=== PATIENT | male | born 1950 | race Caucasian/White ===

== ENCOUNTER 2016-07-04 15:02 | Emergency (ER) | payer MEDICARE, BC ==
--- NOTE | 2016-07-04 15:12 | ER Document Report ---
ED Medical Screen (RME) - General Stated Complaint: DIFFICULTY BREATHING Notes: Patient states he was in the cafeteria today eating lunch and got choked on a piece of hamburger steak. States difficulty breathing for the last 10-14 days, has had a runny nose. Uses his nebulizer 1 time a day. Patient has a history of emphysema. No fever. Called his manager retirement, and his appointment is supposed to be this . Patient states he would not have come to the emergency room for difficulty breathing if he had not got choked in the cafeteria. I have greeted and performed a rapid initial assessment of this patient. A comprehensive ED assessment and evaluation of the patient, analysis of test results and completion of the medical decision making process will be conducted by additional ED providers. TRAVEL OUTSIDE OF THE [place] IN LAST 30 DAYS: No - Related Data Allergies/Adverse Reactions: No Known Allergies Allergy (Verified 07/04/16 15:16) Past Medical History - Social History Family history: Reviewed & Not Pertinent - Past Medical History Cardiac Medical History: Reports: Hx Coronary Artery Disease, Hx Heart Attack - x 3, Hx Hypercholesterolemia, Hx Hypertension Denies: Hx Atrial Fibrillation, Hx Congestive Heart Failure, Hx Peripheral Vascular Disease, Hx Pulmonary Embolism, Hx Heart Murmur Pulmonary Medical History: Reports: Hx Bronchitis, Hx COPD, Hx Pneumonia Denies: Hx Asthma, Hx Respiratory Failure, Hx Sleep Apnea, Hx Tuberculosis Neurological Medical History: Denies: Hx Cerebrovascular Accident, Hx Seizures Endocrine Medical History: Denies: Hx Graves' Disease, Hx Hyperthyroidism, Hx Hypothyroidism Renal/ Medical History: Reports: Hx Benign Prostatic Hyperplasia, Hx Kidney Stones. Denies: Hx End Stage Renal Disease, Hx Peritoneal Dialysis Malignancy Medical History: Denies Hx Lung Cancer GI Medical History: Reports: Hx Gastroesophageal Reflux Disease. Denies: Hx Crohn's Disease, Hx Hiatal Hernia, Hx Irritable Bowel, Hx Liver Failure, Hx Ulcer Musculoskeltal Medical History: Reports Hx Arthritis, Denies Hx Fibromyalgia, Denies Hx Muscular Dystrophy Psychiatric Medical History: Denies: Hx Bipolar Disorder, Hx Dementia, Hx Depression, Hx Post Traumatic Stress Disorder, Hx Schizophrenia Traumatic Medical History: Reports: Hx Fractures Past Surgical History: Reports: Hx Cardiac Surgery - cardiac stents x 3, defib, Hx Cholecystectomy, Hx Internal Defibrillator. Denies: Hx Colostomy, Hx Pacemaker - Immunizations Hx Diphtheria, Pertussis, Tetanus Vaccination: Yes - or 09 Physical Exam - Vital signs Vitals: Temp Pulse Resp BP Pulse Ox 98.0 F 86 18 130/71 H 94 07/04/16 15:06 07/04/16 15:06 07/04/16 15:06 07/04/16 15:06 07/04/16 15:06 - Respiratory Respiratory status: Labored Breath sounds: Decreased air movement, Wheezing Course - Vital Signs Vital signs: Temp Pulse Resp BP Pulse Ox 98.0 F 86 18 130/71 H 94 07/04/16 15:06 07/04/16 15:06 07/04/16 15:06 07/04/16 15:06 07/04/16 15:06
[2016-07-04] MEDS ORDERED: ALBUTEROL SULFATE 0.083% NEB 2.5 MG/3 ML AMPUL NEB ONE (15:16)
[2016-07-04 18:46] VITALS: BP 115/80
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
== END 2016-07-04 19:11 | disposition home or self-care (01) ==
LOC: ER 15:02
DX: T17.990A Other foreign object in respiratory tract, part unspecified in causing asphyxiation, initial encounter (principal); R06.02 Shortness of breath; R07.9 Chest pain, unspecified; Z87.891 Personal history of nicotine dependence; X58.XXXA Exposure to other specified factors, initial encounter
CPT/HCPCS: 94640; 99284; 71020; A9270

== ENCOUNTER → 2016-07-24 | Outpatient (CLI) | payer MEDICARE, BC | LOC: RAD 13:50 | PROVIDERS: ATTEND Internal Medicine Critical Care Medicine | DX: J45.40 Moderate persistent asthma, uncomplicated (principal); J44.9 Chronic obstructive pulmonary disease, unspecified; R05 Cough; R06.00 Dyspnea, unspecified; R53.82 Chronic fatigue, unspecified; G47.33 Obstructive sleep apnea (adult) (pediatric); G47.10 Hypersomnia, unspecified; Z87.898 Personal history of other specified conditions | CPT/HCPCS: 71250 ==

== ENCOUNTER → 2016-10-05 | Outpatient (CLI) | payer MEDICARE, BC ==
--- NOTE | 2016-10-05 10:06 | ST Modified Barium Swallow ---
Recommendation - Recommendations Recommendations: 1) DIET: Recommend regular and thin diet; no seeds, nuts, foods with skins, or crumbly textures. 2) STRATEGIES: alternate solids and liquids to aid in clearing residuals of solids at the level of the valleculae. Chin tuck with thin liquids also observed to aid in clearing residuals. Aspiration precautions due to residuals above the airway. 3) ST in agreement with outpatient speech therapy consultation. Pt reports evaluation to be completed this date. SUMMARY: Pt presents with a mild oropharyngeal dysphagia characterized by reduced base of tongue, mildly reduced laryngeal elevation and hyolaryngeal excursion resulting in mild-moderate residuals of solids at the level of the valleculae. Pt reported globus sensation during study, corresponding with radiographic findings. Alternating solids and liquids observed to clear residuals. Medical Diagnoses - Medical Diagnoses Medical Diagnosis Description & ICD-10 Code(s): r13.10, dysphagia and choking Other Medical Diagnoses/Co-Morbidities: pt reports COPD, asbestos exposure. - ICD-10 Tx Diagnosis Coding (1) Dysphagia, oropharyngeal phase ICD-10 Code(s): R13.12 - DYSPHAGIA, OROPHARYNGEAL PHASE ST Modified Barium Swallow - General Date: 10/05/16 Referring Physician: Dr Plummer Risks/Precautions: None Date of Onset: 10/06/11 Reason for Referral: dysphagia and choking - History History obtained from: Patient -: Medical - Pt reports onset of symptoms approximately 3-5 years ago, states has become worse. Pt reports incident in cafeteria where he "choked on a piece of hamburger" pt states was given the Heimlich maneuver for several minutes before the piece was dislodged. Pt reports was admitted to ER. Pt reports globus sensation over past 6-9 months with occasional coughing and choking. Pt reports no longer eating pistachios due to "choking on them". Pt reports possible history of PNA however pt states unsure of most recent. Pt states always "gets sick" in winter months until spring. Pt also reports chronic bronchitis and COPD, pt states uses CPAP at night. PMHx: pt reports COPD, asbestos exposure. Medications: pt reports: plavix, "garlic thing", 2 aspirins, finasteride, combivent, symbicort, intresto, simvastatin, metoprolol, afluria, clopidogreel, doxazosinmesylate, klor-con, ceterizine, montelukast. Allergies: none reported - Functional Status Prior Functional Status: INDEPENDENT: feeding Current Functional Limitations: feeding - Subjective Patient/caregiver goal(s): safe swallow, r/o aspiration Cognitive-Linguistic Function: WNL Speech Intelligibility: WNL Current Nutritional Means: PO Current PO diet: Regular Current symptoms: Coughing, c/o Globus sensation Pain: 2/5 - headache - Objective Assessment: Upright, Left Lateral - Food Trials Used Food trials used: Thin liquids, Pureed, Regular The patient: Was Able to Self Feed, via cup, via spoon, via straw - Oral-Motor Skills Dentition: Dentures-Upper, Dentures-Lower Velo-pharyngeal function: Unremarkable Laryngeal Function: Volitional Cough, Volitional Swallow - Assessment Oral prep: Normal Labial closure: Adequate Leakage: None Mastication: Adequate Lingual Movement: Normal Oral stage: Normal for this Procedure - Pharyngeal Stage Initiation of Pharyngeal Stage Reflex: Normal Decreased laryngeal elevation: Yes - mild Reduced Velopharyngeal Closure: no Reduced pressure generation: No reduced tongue-based retraction: Yes - mild Pre-swallow pooling in valleculae: None Pre-Swallow pooling in pyriforms: None Reduced Thyro-Hyoid approximation: Yes - mild Reduced epiglottic excursion: No Reduced pharyngeal peristalsis/contraction: No Multiple Swallows with: Cleared w/ Liquid Assist Post-swallow residulas vallecular: Moderate - mild-moderate on puree and regular Post-Swallow residuals in pyriforms: None Post-Swallow Residuals: tongue-base - Fall Risk Assessment Medications/Conditions that increase fall risks include: Antidepressants, sedatives, anti-arrhythmic, diuretic, benzodiazipenes, neuroleptics. BP regulation problems, cardiac problems, balance or gait deficits, neurological problems. Is patient considered at risk for falls: no Fall Risk Actions Taken: No action needed - Behavioral Observations During evaluation process patient: was pleasant, was cooperative, able to answer questions, provided medical history - Treatment / Educational Needs: Treatment/Education Needs: Treatment consisted of patient education on the role of the Speech Pathologist. Patient's plan of care and golas were communicated as well as scheduling and attendance policies. Recommendations for initial home program were shared. Patient demonstrated understanding and verbalized agreement. Initial home program recommendations: Pt provided with verbal and written education on dysphagia, reflux precautions, aspiration PNA, and recommendations from MBSS. - Impression/Summary Laryngeal Penetration: No Tracheal Aspiration: no Effective compensatory strategies: chin tuck - to aid in clearing residuals in valleculae Patient presents with: Oral-Pharyngeal dysph. Risk of Aspiration: Moderate - mild-moderate - Recommendations NPO: no Solid diet recommendations: Regular Liquid Diet Modification: Thin Strict aspiration precautions: Yes Pt/Family education and followup with MD: Yes Dysphagia therapy with BUSINESS DEVELOPMENT CONSULTANT: yes, dysphagia therapy Recommended techniques: Fully Upright During Meal, Small Bites and Sips, Alternate Bites/Sips Supervision: Independent Information, Precautions and Recommendations: Patient (Written), Patient (Verbal ) - Time Total Time: 25 - Plan of Care Strategies to optimize patient understanding include:: ongoing assessment of educational needs, implementation of educational strategies, and re-education. - - -: Thank you for the opportunity to work with this patient and his/her family. Should you have any questions about this patient's plan or progress, I can be reached at [phone]. Charge G Code? - - -: Yes ST F.L. Impairment Category - Rationale Based On Rationale Based On: Clin Find., Obj Measures - Swallowing Current G8996: CJ 20-39% Impaired Goal G8997: CJ 20-39% Impaired Discharge G8998: CJ 20-39% Impaired
--- NOTE | 2016-10-05 16:55 | RADIOLOGY REPORT (SQ) ---
EXAM DESCRIPTION: ITALOIE SWALLOW COMPLETED DATE/TIME: 10/05/2016 8:53 am REASON FOR STUDY: DYSPHAGIA AND CHOKING R13.10 DYSPHAGIA, UNSPECIFIED COMPARISON: None. TECHNIQUE: Videofluoroscopic swallowing examination was performed in conjunction with speech patholo gy. Videofluoroscopic imaging was obtained and reviewed and these are the findings: RADIATION DOSE: 1 minute, 30 seconds of fluoroscopy was used 1 images saved to PACS. LIMITATIONS: None FINDINGS: The patient was brought into the fluoro room and placed upright on a modified barium swall ow chair. The patient was then given multiple consistencies mixed with barium to swallow under live fluoroscopic video guidance. According to the Speech Pathologist there was no penetration or aspirat ion. Post swallow residual contrast seen within the piriform sinuses. IMPRESSION: NO EVIDENCE OF PENETRATION OR ASPIRATION.PLEASE SEE SPEECH PATHOLOGIST REPORT FOR OTHER FINDINGS AND RECOMMENDATIONS. COMMENT: Quality ID [id number]: Final reports for procedures using fluoroscopy that document radiation exp osure indices, or exposure time and number of fluorographic images (if radiation exposure indices are not available) TECHNICAL DOCUMENTATION: JOB ID: [id number] [employer]- All Rights Reserved
== END ==
LOC: RAD 08:06
PROVIDERS: ATTEND Family Medicine
DX: R13.10 Dysphagia, unspecified (principal)
CPT/HCPCS: 74230; 92611; G8996; G8997; G8998

== ENCOUNTER → 2016-10-06 | Outpatient (CLI) | payer MEDICARE, BC ==
[2016-10-06 12:19] LABS: ANION GAP 12 (5-19); BLOOD UREA NITROGEN 16 mg/dL (7-20); CALCIUM 9.1 mg/dL (8.4-10.2); CARBON DIOXIDE 23 mmol/L (22-30); CHLORIDE 106 mmol/L (98-107); CREATININE RESULT 0.95 mg/dL (0.52-1.25); GLUCOSE 154 mg/dL (75-110); POTASSIUM 4.5 mmol/L (3.6-5.0); SODIUM 140.9 mmol/L (137-145)
== END ==
LOC: OD 10:50
PROVIDERS: ATTEND Internal Medicine
DX: I25.10 Atherosclerotic heart disease of native coronary artery without angina pectoris (principal)
CPT/HCPCS: 36415; 80048

== ENCOUNTER → 2016-10-30 | Outpatient (CLI) | payer MEDICARE, BC | LOC: OD 12:31 | PROVIDERS: ATTEND Family Medicine | DX: Z11.3 Encounter for screening for infections with a predominantly sexual mode of transmission (principal) | CPT/HCPCS: 36415 ==

== ENCOUNTER → 2016-12-11 | Outpatient (CLI) | payer MEDICARE, BC ==
--- NOTE | 2016-12-12 10:41 | ST Modified Barium Swallow ---
Recommendation - Recommendations Recommendations: Recommend continuing current diet: regular foods and thin liquids, with previously discussed strategies including chin tuck, alternating bites and sips, and reduced rate of consumption. Medical Diagnoses - Medical Diagnoses Medical Diagnosis Description & ICD-10 Code(s): r13.10, dysphagia and choking Other Medical Diagnoses/Co-Morbidities: pt reports COPD, asbestos exposure. ST Modified Barium Swallow - General Date: 12/11/16 Referring Physician: Dr Plummer Risks/Precautions: None, Aspiration Reason for Referral: follow up to previous modified after course of treatment - History History obtained from: Patient -: Medical - History from initial MBSS on 10/05/16: Pt reports onset of symptoms approximately 3-5 years ago, states has become worse. Pt reports incident in cafeteria where he "choked on a piece of hamburger" pt states was given the Heimlich maneuver for several minutes before the piece was dislodged. Pt reports was admitted to ER. Pt reports globus sensation over past 6-9 months with occasional coughing and choking. Pt reports no longer eating pistachios due to "choking on them". Pt reports possible history of PNA however pt states unsure of most recent. Pt states always "gets sick" in winter months until spring. Pt also reports chronic bronchitis and COPD, pt states uses CPAP at night. PMHx: pt reports COPD, asbestos exposure. Updated information: patient has received speech therapy to address dysphagia since his previous MBSS. He is now independent with his exercises and strategies. Continues to report occasionally coughing and globus sensation at times. Medications: pt reports: plavix, "garlic thing", 2 aspirins, finasteride, combivent, symbicort, intresto, simvastatin, metoprolol, afluria, clopidogreel, doxazosinmesylate, klor-con, ceterizine, montelukast. Allergies: none reported - Functional Status Prior Functional Status: INDEPENDENT: feeding - Independent - Subjective Patient/caregiver goal(s): better swallow Cognitive-Linguistic Function: WNL Speech Intelligibility: WNL Current Nutritional Means: PO Current PO diet: Regular - avoiding foods such as nuts, seeds, anything with a husk Current symptoms: c/o Globus sensation Pain: 2/5 - lower back pain reported - Objective Assessment: Upright, Left Lateral - Food Trials Used Food trials used: Thin liquids, Pureed, Regular The patient: Was Able to Self Feed - Oral-Motor Skills Dentition: Dentures-Upper, Dentures-Lower Laryngeal Function: Volitional Cough, Throat Clear, Volitional Swallow, clear voicing - Assessment Oral prep: Normal Labial closure: Adequate Mastication: Adequate Lingual Movement: Normal Oral stage: Normal for this Procedure - Pharyngeal Stage Initiation of Pharyngeal Stage Reflex: Normal Decreased laryngeal elevation: No - mild Reduced Velopharyngeal Closure: no Reduced pressure generation: No reduced tongue-based retraction: No Pre-swallow pooling in valleculae: None Pre-Swallow pooling in pyriforms: None Reduced Thyro-Hyoid approximation: Yes - mild Reduced epiglottic excursion: No Reduced pharyngeal peristalsis/contraction: No Multiple Swallows with: Cleared w/ Liquid Assist Post-swallow residulas vallecular: Mild - on puree texture Post-Swallow residuals in pyriforms: None - Fall Risk Assessment Medications/Conditions that increase fall risks include: Antidepressants, sedatives, anti-arrhythmic, diuretic, benzodiazipenes, neuroleptics. BP regulation problems, cardiac problems, balance or gait deficits, neurological problems. Is patient considered at risk for falls: no Fall Risk Actions Taken: No action needed - Behavioral Observations During evaluation process patient: was pleasant, was cooperative, able to answer questions Mental Status: Alert & Oriented X3 - Treatment / Educational Needs: Treatment/Education Needs: Treatment consisted of patient education on the role of the Speech Pathologist. Patient's plan of care and golas were communicated as well as scheduling and attendance policies. Recommendations for initial home program were shared. Patient demonstrated understanding and verbalized agreement. - Impression/Summary Laryngeal Penetration: Yes - Penetration noted on thin liquid and puree trials. Material was seen to enter on the underside of the epiglottis at initiation of inversion, but was expelled when swallow completed., Flash Consistency: Thin, Pudding Tracheal Aspiration: no Effective compensatory strategies: chin tuck Patient presents with: Pharyngeal stage dysph., Mild-Moderate Risk of Aspiration: Mild Risk of nutritional compromise: WNL Evaluation and Findings: Patient presented with mildly improved swallow function since previous MBSS. However, mild pharyngeal phase dysphagia still present. Good tongue base retraction noted, good timing of swallow reflex. Flash penetration noted on thin liquid trials and pudding trials, no aspiration present. Mild to moderate residue present in valleculae post swallow on puree trial, cleared easily with liquid wash. Patient still being seen in outpatient treatment setting, will continue to address swallowing deficits. - Recommendations Solid diet recommendations: Regular Liquid Diet Modification: Thin Dysphagia therapy with TRAINING DEVELOPMENT MANAGER: yes - Patient currently receiving outpatient treatment for dysphagia. Recommended techniques: Fully Upright During Meal, Small Bites and Sips, Alternate Bites/Sips, Chin Tuck to Swallow Supervision: Independent Information, Precautions and Recommendations: Patient (Verbal) - Time Total Time: 25 - Plan of Care Summary: Continue with established POC in outpatient setting. Patient to follow-up with referring physician: Yes Strategies to optimize patient understanding include:: ongoing assessment of educational needs, implementation of educational strategies, and re-education. - - -: Thank you for the opportunity to work with this patient and his/her family. Should you have any questions about this patient's plan or progress, I can be reached at [phone]. Charge G Code? - - -: No ST F.L. Impairment Category - Swallowing Current G8996: CJ 20-39% Impaired Goal G8997: CJ 20-39% Impaired Discharge G8998: CJ 20-39% Impaired
== END ==
LOC: RAD 10:05
PROVIDERS: ATTEND Family Medicine
DX: R13.10 Dysphagia, unspecified (principal)
CPT/HCPCS: 74230

== ENCOUNTER 2017-05-09 16:52 | Emergency (ER) | payer MEDICARE, BC ==
--- NOTE | 2017-05-09 17:36 | ER Document Report ---
ED Medical Screen (RME) - General Chief Complaint: Shortness Of Breath Stated Complaint: SHORTNESS OF BREATH Time Seen by Provider: 05/09/17 17:35 Notes: Patient was in with chest pain and shortness of breath. Patient states he has history of heart attacks with 3 stents. Also has a defibrillator. He states he was recently diagnosed with bronchitis and just finished steroids and antibiotics several days ago. TRAVEL OUTSIDE OF THE [place] IN LAST 30 DAYS: No - Related Data Allergies/Adverse Reactions: No Known Allergies Allergy (Verified 05/09/17 16:53) Past Medical History - Social History Family history: Reviewed & Not Pertinent - Past Medical History Cardiac Medical History: Reports: Hx Coronary Artery Disease, Hx Heart Attack - x 3, Hx Hypercholesterolemia, Hx Hypertension Denies: Hx Atrial Fibrillation, Hx Congestive Heart Failure, Hx Peripheral Vascular Disease, Hx Pulmonary Embolism, Hx Heart Murmur Pulmonary Medical History: Reports: Hx Bronchitis, Hx COPD, Hx Pneumonia Denies: Hx Asthma, Hx Respiratory Failure, Hx Sleep Apnea, Hx Tuberculosis Neurological Medical History: Denies: Hx Cerebrovascular Accident, Hx Seizures Endocrine Medical History: Denies: Hx Graves' Disease, Hx Hyperthyroidism, Hx Hypothyroidism Renal/ Medical History: Reports: Hx Benign Prostatic Hyperplasia, Hx Kidney Stones. Denies: Hx End Stage Renal Disease, Hx Peritoneal Dialysis Malignancy Medical History: Denies Hx Lung Cancer GI Medical History: Reports: Hx Gastroesophageal Reflux Disease. Denies: Hx Crohn's Disease, Hx Hiatal Hernia, Hx Irritable Bowel, Hx Liver Failure, Hx Pancreatitis, Hx Ulcer Musculoskeltal Medical History: Reports Hx Arthritis, Denies Hx Fibromyalgia, Denies Hx Muscular Dystrophy Psychiatric Medical History: Denies: Hx Bipolar Disorder, Hx Dementia, Hx Depression, Hx Post Traumatic Stress Disorder, Hx Schizophrenia Traumatic Medical History: Reports: Hx Fractures Past Surgical History: Reports: Hx Cardiac Surgery - cardiac stents x 3, defib, Hx Cholecystectomy, Hx Internal Defibrillator. Denies: Hx Colostomy, Hx Pacemaker - Immunizations Hx Diphtheria, Pertussis, Tetanus Vaccination: Yes - or 09 Physical Exam - Vital signs Vitals: Temp Pulse Resp BP Pulse Ox 97.5 F 49 L 18 114/55 L 95 05/09/17 17:03 05/09/17 17:03 05/09/17 17:03 05/09/17 17:03 05/09/17 17:03 Course - Vital Signs Vital signs: Temp Pulse Resp BP Pulse Ox 97.5 F 49 L 18 114/55 L 95 05/09/17 17:03 05/09/17 17:03 05/09/17 17:03 05/09/17 17:03 05/09/17 17:03
--- NOTE | 2017-05-09 18:35 | RADIOLOGY REPORT (SQ) ---
EXAM DESCRIPTION: CHEST PA/LAT COMPLETED DATE/TIME: 05/09/2017 6:07 pm REASON FOR STUDY: sob/cough COMPARISON: June 2016 EXAM PARAMETERS: NUMBER OF VIEWS: two views TECHNIQUE: Digital Frontal and Lateral radiographic views of the chest acquired. RADIATION DOSE: NA LIMITATIONS: none FINDINGS: LUNGS AND PLEURA: No opacities, masses or pneumothorax. No pleural effusion. MEDIASTINUM AND HILAR STRUCTURES: No masses or contour abnormalities. HEART AND VASCULAR STRUCTURES: The configuration of the heart and mediastinal structures is unchanged . BONES: No acute findings. HARDWARE: AICD device is unchanged in position OTHER: No other significant finding. IMPRESSION: No significant interval change. No acute findings. Other findings as noted above TECHNICAL DOCUMENTATION: JOB ID: [id number] [employer]- All Rights Reserved
[2017-05-09 19:09] LABS: ALANINE AMINOTRANSFERASE 45 U/L (21-72); ALBUMIN 3.7 g/dL (3.5-5.0); ALKALINE PHOSPHATASE 55 U/L (38-126); ANION GAP 9 (5-19); ASPARTATE AMINO TRANSFERASE 32 U/L (17-59); BILIRUBIN,DIRECT 0.2 mg/dL (0.0-0.4); BILIRUBIN,TOTAL 0.9 mg/dL (0.2-1.3); BLOOD UREA NITROGEN 29 mg/dL (7-20); CALCIUM 9.1 mg/dL (8.4-10.2); CARBON DIOXIDE 23 mmol/L (22-30); CHLORIDE 106 mmol/L (98-107); GLUCOSE 93 mg/dL (75-110); POTASSIUM 4.4 mmol/L (3.6-5.0); SODIUM 138.4 mmol/L (137-145); TOTAL PROTEIN 6.3 g/dL (6.3-8.2)
[2017-05-09 19:16] LABS: HEMATOCRIT 46.7 % (37.9-51.0); MEAN CORPUSCULAR HGB CONC 34.2 g/dL (32.0-36.0); MEAN CORPUSCULAR VOLUME 91 fl (80-97); PLATELET COUNT 212 10^3/uL (150-450); RED BLOOD COUNT 5.15 10^6/uL (4.35-5.55); RED CELL DISTRIBUTION WIDTH 13.5 % (11.5-14.0); WHITE BLOOD COUNT 11.2 10^3/uL (4.0-10.5)
[2017-05-09 19:40] LABS: ABSOLUTE LYMPHOCYTES# (MANUAL) 2.5 10^3/uL (0.5-4.7); ABSOLUTE MONOCYTES # (MANUAL) 0.4 10^3/uL (0.1-1.4); ABSOLUTE NEUTROPHILS# (MANUAL) 8.2 10^3/uL (1.7-8.2); BASOPHILS % (MANUAL) 0 % (0-2); EOSINOPHILS % (MANUAL) 1 % (0-6); LYMPHOCYTES % (MANUAL) 19 % (13-45); METAMYELOCYTES % (MANUAL) 1 % (0); MONOCYTES % (MANUAL) 4 % (3-13); SEGMENTED NEUTROPHILS % (MAN) 72 % (42-78); TOTAL CELLS COUNTED 100
[2017-05-09 19:41] LABS: RBC MORPHOLOGY COMMENT NORMO-CYTIC/CHROMIC
[2017-05-09 19:42] LABS: PLATELET COMMENT ADEQUATE
[2017-05-09] MEDS ORDERED: IPRATROPIUM/ALBUTEROL 0.5-2.5 MG/3 ML AMPUL NEB ONE (21:20)
[2017-05-09] MEDS ORDERED: FUROSEMIDE INJ/PF 40 MG/4 ML SDV IV ONE (23:40)
[2017-05-10] MEDS ORDERED: METHYLPREDNISOLONE INJ 125 MG/2 ML SDV IV ONE (02:07)
[2017-05-10] MEDS ORDERED: MAGNESIUM SULFATE/D5W 1 GM/100 ML RTUPB IV ONE (02:07)
--- NOTE | 2017-05-10 02:41 | ER Document Report ---
ED General - General Chief Complaint: Shortness Of Breath Stated Complaint: SHORTNESS OF BREATH Time Seen by Provider: 05/09/17 17:35 Mode of Arrival: Ambulatory Information source: Patient Notes: This is a 66-year-old man with a history of coronary artery disease, defibrillator, COPD presents to the emergency room with cough and congestion for 2 weeks with some shortness of breath. Patient recently finished course of antibiotics. TRAVEL OUTSIDE OF THE [place] IN LAST 30 DAYS: No - HPI Onset: Last week Onset/Duration: Gradual Quality of pain: No pain Severity: None Pain Level: Denies Associated symptoms: Nonproductive cough, Shortness of breath. denies: Chest pain, Fever Exacerbated by: Denies Relieved by: Denies Similar symptoms previously: Yes Recently seen / treated by doctor: Yes - Related Data Allergies/Adverse Reactions: No Known Allergies Allergy (Verified 05/09/17 16:53) Past Medical History - General Information source: Patient - Social History Smoking Status: Unknown if Ever Smoked Cigarette use (# per day): No Chew tobacco use (# tins/day): No Frequency of alcohol use: None Drug Abuse: None Lives with: Alone Family History: Reviewed & Not Pertinent Patient has suicidal ideation: No Patient has homicidal ideation: No - Past Medical History Cardiac Medical History: Reports: Hx Coronary Artery Disease, Hx Heart Attack - x 3, Hx Hypercholesterolemia, Hx Hypertension Denies: Hx Atrial Fibrillation, Hx Congestive Heart Failure, Hx Peripheral Vascular Disease, Hx Pulmonary Embolism, Hx Heart Murmur Pulmonary Medical History: Reports: Hx Bronchitis, Hx COPD, Hx Pneumonia Denies: Hx Asthma, Hx Respiratory Failure, Hx Sleep Apnea, Hx Tuberculosis Neurological Medical History: Denies: Hx Cerebrovascular Accident, Hx Seizures Endocrine Medical History: Denies: Hx Graves' Disease, Hx Hyperthyroidism, Hx Hypothyroidism Renal/ Medical History: Reports: Hx Benign Prostatic Hyperplasia, Hx Kidney Stones. Denies: Hx End Stage Renal Disease, Hx Peritoneal Dialysis Malignancy Medical History: Denies Hx Lung Cancer GI Medical History: Reports: Hx Gastroesophageal Reflux Disease. Denies: Hx Crohn's Disease, Hx Hiatal Hernia, Hx Irritable Bowel, Hx Liver Failure, Hx Pancreatitis, Hx Ulcer Musculoskeltal Medical History: Reports Hx Arthritis, Denies Hx Fibromyalgia, Denies Hx Muscular Dystrophy Psychiatric Medical History: Denies: Hx Bipolar Disorder, Hx Dementia, Hx Depression, Hx Post Traumatic Stress Disorder, Hx Schizophrenia Traumatic Medical History: Reports: Hx Fractures Past Surgical History: Reports: Hx Cardiac Surgery - cardiac stents x 3, defib, Hx Cholecystectomy, Hx Internal Defibrillator. Denies: Hx Colostomy, Hx Pacemaker - Immunizations Hx Diphtheria, Pertussis, Tetanus Vaccination: Yes - 08 or 09 Hx Pneumococcal Vaccination: 04/16/00 Review of Systems - Review of Systems Constitutional: denies: Chills, Fever EENT: No symptoms reported Cardiovascular: No symptoms reported Respiratory: See HPI Gastrointestinal: No symptoms reported Genitourinary: No symptoms reported Male Genitourinary: No symptoms reported Musculoskeletal: No symptoms reported Skin: No symptoms reported Hematologic/Lymphatic: No symptoms reported Neurological/Psychological: No symptoms reported Physical Exam - Vital signs Vitals: Temp Pulse Resp BP Pulse Ox 97.5 F 49 L 18 114/55 L 95 05/09/17 17:03 05/09/17 17:03 05/09/17 17:03 05/09/17 17:03 05/09/17 17:03 Notes: Physical exam: GENERAL: 66-year-old man, alert and oriented 3, no acute distress HEAD: Atraumatic, normocephalic. EYES: Pupils equal round and reactive to light, extraocular movements intact, sclera anicteric, conjunctiva are normal. ENT: TMs normal, nares patent, oropharynx clear without exudates. Moist mucous membranes. NECK: Normal range of motion, supple without obvious mass or JVD. LUNGS: Wheezing bilaterally HEART: Regular rate and rhythm without murmurs, rubs or gallops. ABDOMEN: Soft, normoactive bowel sounds. No tenderness to palpation. No guarding, no rebound. No masses appreciated. EXTREMITIES: Normal range of motion, no pitting or edema. No clubbing or cyanosis. NEUROLOGICAL: Cranial nerves II through XII grossly intact. Normal speech, moving all extremities. PSYCH: Normal mood, normal affect. SKIN: Warm, Dry, normal turgor, no rashes or lesions noted. Course - Re-evaluation Re-evalutation: 05/10/17 02:37 Patient treated with nebulizers, steroids and magnesium. Discussed case with Dr. Garcia will see the patient later today in his office. - Vital Signs Vital signs: Temp Pulse Resp BP Pulse Ox 97.5 F 49 L 20 115/97 H 93 05/09/17 17:03 05/09/17 17:03 05/10/17 03:21 05/10/17 03:21 05/10/17 03:21 - Laboratory Result Diagrams: 05/09/17 18:25 05/09/17 18:25 Laboratory results interpreted by me: 05/09/17 05/09/17 18:25 18:25 WBC 11.2 H Metamyelocytes % 1 H BUN 29 H - Diagnostic Test Radiology reviewed: Image reviewed, Reports reviewed - Cardiomegaly without infiltrates - EKG Interpretation by Me Rate: Normal Rhythm: NSR - EKG shows normal sinus rhythm with PVCs, left branch block, no acute change compared to EKG 03/26/2016 Discharge - Discharge Clinical Impression: Bronchitis with bronchospasm Condition: Stable Disposition: HOME, SELF-CARE Additional Instructions: Thank you for choosing [facility] for your care. The examination and treatment you have received in the Emergency Department today has been rendered on an emergency basis only and is not intended to be a substitute for complete medical care. You should contact your doctor as it is important that she/he examine you for any new or remaining problems. If your problem worsens or new symptoms appear and you are unable to arrange prompt follow-up care, return to the Emergency Department. Specific signs to look out for: Return to the emergency room for worsening difficulty breathing, wheezing or concerns or getting worse. Any other instructions: Take the prednisone as prescribed. Continue current medicines. Follow-up with Dr. Rivera later this afternoon Prescriptions: Prednisone [Deltasone 20 mg Tablet] 3 tab PO DAILY 5 Days tablet Referrals: NAV GARCIA MD [Primary Care Provider] - Follow up as needed
[2017-05-10 03:27] VITALS: BP 115/97
--- NOTE | 2017-05-10 12:02 | EKG REPORT ---
SEVERITY:- ABNORMAL ECG - SINUS RHYTHM MULTIPLE VENTRICULAR PREMATURE COMPLEXES LEFT BUNDLE BRANCH BLOCK : Confirmed by: Kendall Hobson 10-May-2017 12:02:03
== END 2017-05-10 03:33 | disposition home or self-care (01) ==
LOC: ER 16:52
DX: J40 Bronchitis, not specified as acute or chronic (principal); J44.9 Chronic obstructive pulmonary disease, unspecified; R05 Cough; R06.02 Shortness of breath; I51.7 Cardiomegaly; I49.3 Ventricular premature depolarization; I10 Essential (primary) hypertension; I25.2 Old myocardial infarction; I25.10 Atherosclerotic heart disease of native coronary artery without angina pectoris; Z95.810 Presence of automatic (implantable) cardiac defibrillator; Z87.01 Personal history of pneumonia (recurrent)
CPT/HCPCS: 93005; 94640; 99285; 96375; 96365; 36415; 83735; 85025; 80053; 84484; 71046; 93010; J1940; J2930; J3475; A9270; J7620

== ENCOUNTER 2018-07-02 13:44 | Emergency (ER) | payer MEDICARE, BC ==
--- NOTE | 2018-07-02 17:18 | EKG REPORT ---
SEVERITY:- ABNORMAL ECG - SINUS RHYTHM AV BLOCK, SECOND DEGREE, MOBITZ TYPE 1, WITH ONE 2;1 HEART BLOCK PROBABLE LEFT ATRIAL ABNORMALITY NONSPECIFIC INTRAVENTRICULAR CONDUCTION DELAY LVH WITH SECONDARY REPOLARIZATION ABNORMALITY ST DEPRESSION, CONSIDER ISCHEMIA, ANT-LAT LDS : Confirmed by: Kendall Hobson 02-Jul-2018 17:18:17
[2018-07-02 17:22] VITALS: BP 157/111
[2018-07-02] MEDS ORDERED: SODIUM BICARBONATE 8.4% INJ 50 MEQ/50 ML DISP.SYRIN ONE (20:45)
[2018-07-02] MEDS ORDERED: EPINEPHRINE INJ 1 MG/10 ML DISP.SYRIN ONE (20:45)
--- NOTE | 2018-07-08 08:44 | ER Document Report ---
Entered by RUSTY ROY SCRIBE 07/02/18 1406 Acting as scribe for:LUISA LIM MD ED Resuscitation - General Stated Complaint: POST ARREST Primary Care Provider: NAV GARCIA MD [Primary Care Provider] - Follow up as needed Mode of Arrival: Medic Information source: Emergency Med Personnel, [facility] Records, Outside Facility Records Notes: This 67-year-old male patient is brought the emergency room by EMS following a cardiac arrest resuscitation and feel. By history, 911 was called for respiratory difficulty. When law enforcement arrived on scene the patient was seated in a chair doing a breathing treatment and holding his cell phone. Shortly after they arrived the patient went pulseless and they started CPR. EMS showed up about 3 minutes after CPR was started. The did CPR for another 4-5 minutes. The patient got return of spontaneous circulation, it did not last very long, then they got circulation again. They tried pacing the patient but this did not seem to be successful. He was given 6 epi doses, and then 4 push dose epi doses. He had a Jacob tube placed. The last epinephrine dose was given just before he came to the emergency room doors. On emergency room arrival, CPR is in progress. Patient has a Jacob airway in. Chest compressions were done by one of our PCT's, getting good waveform, and and eventually the pulse ox pillo up as high as 100% on a good waveform. The patient's pupils were fixed and dilated. Patient was given sodium bicarb, additional epinephrine, and developed complexes on the monitor, but these were agonal and without pulses. Given the length of the CPR, and the nonresponse, the code was called at 1354. A very few minutes later, the patient had return of spontaneous circulation, so the bag valve was used to ventilate him through the Jacob airway. He did develop palpable pulses without further intervention. He was then intubated with a 7.5 ET tube following removal of the Jacob airway. The carbon dioxide monitor showed good exchange of gases, he had good rise and fall of chest, he had good breath sounds bilaterally. His pulse ox reading was 95% on a good waveform. This lasted approximately 20 minutes, then the patient went into a PEA rhythm again. Chest compressions were reinstituted, IV fluids continued to run, the patient had 1 amp of bicarb and another amp of epinephrine given. This did not result in a return of normal complexes or pulses. The patient was pronounced at 1425 and all resuscitative efforts were ceased. Reviewing the patient's recent prescriptions reveals that he was prescribed Cipro 250 mg twice daily and prednisone 20 mg twice daily on 06/30/2018. TRAVEL OUTSIDE OF THE [place] IN LAST 30 DAYS: No - Related Data Allergies/Adverse Reactions: No Known Allergies Allergy (Verified 05/09/17 16:53) Past Medical History - General Information source: Emergency Med Personnel, [facility] Records, Outside Facility Records Cannot obtain history due to: Intubated, Unstable vital signs - Social History Smoking Status: Former Smoker Cigarette use (# per day): No Chew tobacco use (# tins/day): No Smoking Education Provided: No Frequency of alcohol use: None Drug Abuse: None Occupation: Retired Lives with: Alone Family History: Reviewed & Not Pertinent - Past Medical History Cardiac Medical History: Reports: Hx Coronary Artery Disease, Hx Heart Attack - x 3, Hx Hypercholesterolemia, Hx Hypertension Pulmonary Medical History: Reports: Hx Bronchitis, Hx COPD, Hx Pneumonia EENT Medical History: Reports: None Neurological Medical History: Reports: None Endocrine Medical History: Reports: None Renal/ Medical History: Reports: Hx Benign Prostatic Hyperplasia, Hx Kidney Stones GI Medical History: Reports: Hx Gastroesophageal Reflux Disease Musculoskeletal Medical History: Reports Hx Arthritis Psychiatric Medical History: Reports: None Traumatic Medical History: Reports: Hx Fractures Past Surgical History: Reports: Hx Cardiac Catheterization, Hx Cardiac Surgery - Defibrillator, Hx Cholecystectomy, Hx Coronary Stent - x3, Hx Internal Defibrillator - Immunizations Hx Diphtheria, Pertussis, Tetanus Vaccination: Yes - 08 or 09 Hx Pneumococcal Vaccination: 04/16/00 Review of Systems - Review of Systems -: Yes ROS unobtainable due to patient's medical condition Physical Exam - Vital signs Vitals: Resp Pulse Ox 29 H 98 07/02/18 13:45 07/02/18 13:45 - General General appearance: Unresponsive - HEENT Head: Normocephalic, Atraumatic Pupils: Dilated, Fixed - Respiratory Respiratory status: Other - Intubated with equal breath sounds bilaterally - Cardiovascular Rhythm: Other - asystole - Abdominal Inspection: Obese - Extremities General upper extremity: Normal inspection. No: Edema General lower extremity: Normal inspection. No: Edema - Neurological Javi Coma Scale Eye Opening: None Falconer Coma Scale Verbal: None Falconer Coma Scale Motor: None Javi Coma Scale Total: 3 - Skin Skin Temperature: Cool Skin Moisture: Dry Skin Color: Normal Course - Vital Signs Vital signs: Temp Pulse Resp BP Pulse Ox 98.5 F 9 L 157/111 H 72 L 07/02/18 14:26 07/02/18 14:26 07/02/18 14:26 07/02/18 14:25 - EKG Interpretation by Me EKG shows normal: Sinus rhythm, Porter, Intervals, QRS Complexes. abnormal: ST-T Waves - Anterolateral ST depression suggesting ischemic change Rate: Normal - 88 Rhythm: APC's Porter/QRS: IVCD Voltage: Consistant with LVH P Waves: LAE Heart block present: 1st Degree Critical Care Note - Critical Care Note Total time excluding time spent on procedures (mins): 32 Discharge - Discharge Clinical Impression: Cardiopulmonary arrest Disposition: Referrals: NAV GARCIA MD [Primary Care Provider] - Follow up as needed I personally performed the services described in the documentation, reviewed and edited the documentation which was dictated to the scribe in my presence, and it accurately records my words and actions.
== END 2018-07-02 14:25 | disposition expired ==
LOC: ER 13:44
DX: I46.9 Cardiac arrest, cause unspecified (principal); I44.0 Atrioventricular block, first degree; I25.10 Atherosclerotic heart disease of native coronary artery without angina pectoris; I25.2 Old myocardial infarction; I10 Essential (primary) hypertension; J44.9 Chronic obstructive pulmonary disease, unspecified; Z95.810 Presence of automatic (implantable) cardiac defibrillator; Z87.891 Personal history of nicotine dependence; Z95.5 Presence of coronary angioplasty implant and graft
CPT/HCPCS: 93005; 99291; 92950; 51702; 94660; 93010; 31500; J0171; J3490; 99285